=== PATIENT | female | born 1945 | race Caucasian/White ===

== ENCOUNTER 2018-04-03 07:48 | Day surgery (SDC) | payer MEDICARE, BC ==
[2018-04-03] MEDS ORDERED: Sodium Chloride 0.9% 10 ML Syringe FLUSH PRN (08:15)
[2018-04-03] MEDS ORDERED: Lactated Ringers 1,000 ML IV SCH (08:15)
[2018-04-03] MEDS ORDERED: Propofol 200 MG/20 ML SDV IV ONE (09:30)
--- NOTE | 2018-04-03 10:05 | PCM.OPNOTE ---
- General Post-Op/Procedure Note Date of Surgery/Procedure: 04/03/18 Operative Procedure(s): c scope with bx Findings: descending colon polyp Pre Op Diagnosis: + Cologuard test Post-Op Diagnosis: descending colon polyp Anesthesia Technique: MAC Primary Surgeon: Rohit Briggs Anesthesia Provider: Greg Thompson Pathology: descending colon polyp Complications: None Condition: Good Free Text/Narrative:: see dictation
--- NOTE | 2018-04-03 10:53 | OR ---
DATE OF OPERATION: 04/03/2018 SURGEON: Rohit Briggs MD PROCEDURES PERFORMED: Colonoscopy with cold forceps biopsy. PREOPERATIVE DIAGNOSIS: Positive Cologuard test. POSTOPERATIVE DIAGNOSIS: Descending colon polyp. INDICATIONS FOR PROCEDURE: This is a 72-year-old white female with a positive Cologuard, offered and accepted colonoscopy. DESCRIPTION OF PROCEDURE: After an excellent IV sedation was administered, digital rectal exam was performed. No marked abnormality was noted. Flexible colonoscope was inserted and advanced to the cecum. The prep was good. There were some areas that we had to irrigate, but otherwise got a good view of the colon. Ascending colon, unremarkable. Transverse colon, unremarkable. Descending colon, adenomatous-appearing polyp, biopsied with cold biopsy forceps and sent for permanent. Sigmoid, unremarkable. Rectum and anus, unremarkable. Colon was deflated. The scope was removed. The patient tolerated the procedure well and was taken to Recovery in a good condition. /[id number] FAVIO/MISAEL
== END 2018-04-03 10:58 | disposition home or self-care (01) ==
LOC: FB.SDS 07:48
PROVIDERS: ATTEND Surgery
DX: R19.5 Other fecal abnormalities (principal); D12.4 Benign neoplasm of descending colon; I10 Essential (primary) hypertension; E11.36 Type 2 diabetes mellitus with diabetic cataract; H25.13 Age-related nuclear cataract, bilateral; E03.9 Hypothyroidism, unspecified; E78.00 Pure hypercholesterolemia, unspecified; F32.9 Major depressive disorder, single episode, unspecified; Z86.010 Personal history of colon polyps; Z87.891 Personal history of nicotine dependence; Z80.0 Family history of malignant neoplasm of digestive organs; Z79.01 Long term (current) use of anticoagulants; Z79.84 Long term (current) use of oral hypoglycemic drugs; Z79.899 Other long term (current) drug therapy
CPT/HCPCS: 00812; 45380; 82962; 88305; J2704; J7120